=== PATIENT | female | born 1975 | race Caucasian/White ===

== ENCOUNTER 2016-12-08 13:22 | Emergency (ER) | payer OTHER ==
[~2016-12-08] VITALS: Ht 165.1 cm; Wt 102.3 kg
[~2016-12-08 13:22] MED LIST: ADDERALL20 MG PO; CYMBALTA 60MG60 MG PO; IMITREX100 MG PO; LASIX 40MG TABL40 MG PO; MORPHINE 1515 MG/TAB PO; MORPHINE SULFAT15 M2 PO; SYNTHROID0.125 MG/T PO; [UNRECOGNIZED DRUG - OTHER]
[2016-12-08 13:27] VITALS: BP 121/57; TEMP 98.9
[2016-12-08] MEDS ORDERED: PRISTIQ 50 MG T50 MG PO (14:19)
[2016-12-08] MEDS ORDERED: MAXALT10 MG (14:19)
[2016-12-08] MEDS ORDERED: LITHIUM 30300 MG/CAP PO (14:21)
[2016-12-08] MEDS ORDERED: ADCIRCA20 MG PO (14:21)
[2016-12-08] MEDS ORDERED: LYRICA 150MG C150 MG PO (14:22)
[2016-12-08 15:57] VITALS: PULSE 73
== END 2016-12-08 15:58 | disposition home or self-care (01) ==
LOC: COL.ER 13:22
DX: G43.909 Migraine, unspecified, not intractable, without status migrainosus (principal); F31.9 Bipolar disorder, unspecified; Z90.710 Acquired absence of both cervix and uterus
CPT/HCPCS: J2270; J2405